=== PATIENT | female | born 2000 | race American Indian/Alaskan Native ===

== ENCOUNTER 2018-10-02 09:13 | Emergency (ER) | payer MEDICAID ==
[2018-10-02 09:36] VITALS: BP 111/70
[2018-10-02 09:59] LABS: Hematocrit 43.9 % (30.3-42.9); Hemoglobin 14.8 gm/dl (10.1-14.3); Mean Corpuscular HGB Conc 34 % (30-34); Mean Corpuscular Volume 95 fl (79-97); Platelet Count 267 K/mm3 (140-440); Red Blood Count 4.64 M/mm3 (3.65-5.03)
[2018-10-02 10:12] LABS: BUN/Creatinine Ratio 14; Blood Urea Nitrogen 13 mg/dL (7-17); Calcium 9.3 mg/dL (8.4-10.2); Hemolysis Index 30
[2018-10-02] MEDS ORDERED: KEPPRA 1,000 MG/NS 0.75% 100ML 1,000 MG/100 ML BAG IV ONE (10:16)
--- NOTE | 2018-10-02 10:24 | Emergency Department Report ---
HPI - General Chief Complaint: Seizure Time Seen by Provider: 10/02/18 10:15 - HPI HPI: Room 3 The patient is a 18-year-old female presented with a chief complaint of seizure. The patient has history of autism, cerebral palsy and epilepsy and reportedly had a seizure while on a bus to school this morning. The patient takes Topamax and mother states the patient has been compliant. The patient's last seizure before today occurred last week. The mother states the patient's seizures have been controlled however recently there was a in the family requiring frequent travel and lack of sleep is one of the patient's triggers for seizures. The mother states the patient is back to her normal neurologic self Location: [facility] Duration: [See above] Quality: Generalized tonic-clonic Severity: Moderate Modifying factors: [see above] Context: [see above] Mode of transportation: [not driving] ED Past Medical Hx - Past Medical History Previous Medical History?: Yes Hx Seizures: Yes Additional medical history: delayed. cerebral palsy - Surgical History Additional Surgical History: heart surgery 1m, right lower extremity tendon release 2, feeding tube placement and removal - Family History Family history: no significant - Social History Smoking Status: Never Smoker Substance Use Type: None - Medications Home Medications: Home Medications Medication Instructions Recorded Confirmed Last Taken Type levETIRAcetam [Keppra] 500 mg PO BID 02/15/15 02/15/15 02/13/15 History ED Review of Systems ROS: Stated complaint: SEIZURE Other details as noted in HPI Comment: Unobtainable due to pts medical conditions Physical Exam - Physical Exam Vital Signs: Vital Signs 10/02/18 10/02/18 09:35 09:36 Temperature 97.7 F Pulse Rate 117 H Respiratory 18 18 Rate Blood Pressure 111/70 [Left] O2 Sat by Pulse 95 95 Oximetry Physical Exam: GENERAL: The patient is well-nourished patient with cerebral palsy lying on bed rocking back and forth (normal per mother as this is the way she "rocks" herself to sleep). [] HEENT: Atraumatic. Extraocular motions are intact. Patient has moist mucous membranes. NECK: Supple. Trachea midline CHEST/LUNGS: Clear to auscultation. There is no respiratory distress noted. HEART/CARDIOVASCULAR: Regular. There is no tachycardia. There is no gallop rub or murmur. ABDOMEN: Abdomen is soft, nontender. Patient has normal bowel sounds. There is no abdominal distention. SKIN: There is no rash. There is no edema. There is no diaphoresis. NEURO: The patient is awake and alert. The patient is cooperative. MUSCULOSKELETAL: There is no evidence of acute injury. ED Course Vital Signs 10/02/18 10/02/18 09:35 09:36 Temperature 97.7 F Pulse Rate 117 H Respiratory 18 18 Rate Blood Pressure 111/70 [Left] O2 Sat by Pulse 95 95 Oximetry ED Medical Decision Making - Lab Data Result diagrams: 10/02/18 09:50 10/02/18 09:50 - Differential Diagnosis seizure Critical care attestation.: If time is entered above; I have spent that time in minutes in the direct care of this critically ill patient, excluding procedure time. ED Disposition Clinical Impression: Seizure Disposition: DC-01 TO HOME OR SELFCARE Is pt being admited?: No Does the pt Need Aspirin: No Condition: Stable Instructions: Epilepsy (ED) Additional Instructions: Return to the emergency department immediately should you develop worsening sym ptoms, fever, inability to tolerate food or liquid or any other concerns. Referrals: JALEEL COMER MD [Primary Care Provider] - 3-5 Days Time of Disposition: 10:23
== END 2018-10-02 10:48 | disposition home or self-care (01) ==
LOC: ED 09:13
DX: R56.9 Unspecified convulsions (principal)
CPT/HCPCS: 36415; 80048; 85027; 99284